=== PATIENT | female | born 1960 | race Caucasian/White ===

== ENCOUNTER → 2016-10-29 | Outpatient (CLI) | payer OTHER ==
[~2016-10-29] MED LIST: ACTOS DPS30 MG PO; ASA325 MG PO; CARBIDOPA-LEVO1 EAC3 PO; CENTRUM COMPLE1 EACH PO; CINNAMON500 MG PO; CYMBALTA DPS60 MG PO; EPZICOM TABLET1 EACH PO; FISH OIL 1,0001 EAC1 PO; GENVOYA TABLET1 EACH PO; GLUCOPHAGE-DPS500 MG PO; IRBESARTAN-HCT1 EACH PO; LIPITOR DPS20 MG PO; MAALOX DPS30 ML PO; MILK OF MAGNESI10 ML PO; MIRALAX PACKET17 GM PO; MOBIC15 MG PO; NEXIUM40 MG PO; NORVIR100 MG PO; OXY IR DPS5 MG PO; PAMELOR DPS10 MG PO; PREZISTA800 MG PO; PRILOSEC DPS20 MG PO; SENOKOT S1 TAB PO; SENOKOT-S TABL1 EACH PO; SUPER B-50 COM1 EACH PO; SYNTHROID112 MCG PO; TYLENOL325 MG PO; ULTRAM50 MG PO; VITAMIN C1000 MG PO; XARELTO10 MG PO; ZOFRAN4 MG PO
--- NOTE | 2016-11-05 13:55 | SS ---
ADMIT: 10/29/2016 RM/LOC: [facility] MR#: [id number] [address] [id number] ADYSILAS MASSEY Frank [address] [place] [address] Sleep Study SEX: F AGE: 56 : 1960 STUDY DATE: 10/29/2016 CLINICAL HISTORY: A 56-year-old female, body mass index of 48.9, 65 inches tall, 293 pounds, known history of obstructive sleep apnea, in the sleep lab for CPAP titration. TECHNICAL DESCRIPTION: CPAP titration performed on night of 10/29/2016, attended by a trained histotechnologist. TITRATION FINDINGS: TITRATION DESCRIPTION: The patient was titrated from 5 cm of CPAP to 7 cm of CPAP. AirFit F10 nasal mask was used. SLEEP: Total time in bed is 348 minutes, total sleep time 314 minutes, sleep efficient 90.2%. 82.8% hours spent in stage II sleep, 10.1% hours spent in stage REM. BREATHING: The patient had few scattered hypopneas at CPAP at 5 and 7 cm. At the end of the study, the patient was seen in REM sleep in supine position at 7 cm CPAP with good resolution of obstructive events though few hypopneas were noted. OXYGEN SATURATION: Mean sleeping oxygen saturation is 91%. CARDIAC: Average heart rate is 83 beats per minute. MOVEMENTS/POSITION: During the study, the patient slept in the supine lateral position with significant periodic leg movements of sleep. IMPRESSION/PLAN: Recommend using CPAP at 7 cm with mask per the patient preference. Alternatively auto CPAP from 5 to 10 cm may be used. Recommend losing weight, avoiding sedatives or alcohol. Refrain from driving if excessively sleepy. Recommend avoiding sleeping in supine position. Clinical correlation needed. CPAP compliance followup is recommended. Felipe Reed MD/ kwasi JOB #: [id number] CC: Chay Camargo MD, Attending Physician Chay Camargo MD, Family Physician
== END | disposition home or self-care (01) ==
LOC: RESC 20:17
DX: G47.33 Obstructive sleep apnea (adult) (pediatric) (principal)

== ENCOUNTER → 2016-10-31 | Outpatient (CLI) | payer OTHER | END | disposition home or self-care (01) | LOC: RAD.S 09:55 | DX: Z12.31 Encounter for screening mammogram for malignant neoplasm of breast (principal); R92.1 Mammographic calcification found on diagnostic imaging of breast ==